=== PATIENT | female | born 1970 | race Two or more races ===

== ENCOUNTER 2019-01-23 09:55 | Emergency (ER) | payer MEDICAID ==
[~2019-01-23] VITALS: Ht 160 cm; Wt 58.5 kg
[2019-01-23 10:03] VITALS: BP 126/76; Ht 160 cm; Wt 58.5 kg
== END 2019-01-23 10:34 | disposition home or self-care (01) ==
LOC: ED 09:55
DX: S81.051A Open bite, right knee, initial encounter (principal); Z88.0 Allergy status to penicillin; Z90.89 Acquired absence of other organs; W54.0XXA Bitten by dog, initial encounter; Y93.89 Activity, other specified; Y92.89 Other specified places as the place of occurrence of the external cause; Y99.8 Other external cause status
CPT/HCPCS: 90715

== ENCOUNTER 2019-12-20 09:12 | Emergency (ER) | payer SELFPAY ==
[~2019-12-20] VITALS: Ht 160 cm; Wt 57.6 kg
[2019-12-20 09:44] VITALS: Ht 160 cm; Wt 57.6 kg
[2019-12-20 13:42] VITALS: BP 124/68
== END 2019-12-20 13:34 | disposition home or self-care (01) ==
LOC: ED 09:12
DX: S82.831A Other fracture of upper and lower end of right fibula, initial encounter for closed fracture (principal); S80.01XA Contusion of right knee, initial encounter; I10 Essential (primary) hypertension; Z90.89 Acquired absence of other organs; X50.1XXA Overexertion from prolonged static or awkward postures, initial encounter; Y93.89 Activity, other specified; Y92.89 Other specified places as the place of occurrence of the external cause; Y99.8 Other external cause status
CPT/HCPCS: 90715; Q0092